=== PATIENT | female | born 1960 | race Two or more races ===

== ENCOUNTER → 2023-07-07 | Outpatient (CLI) | payer MEDICARE, OTHER | END | disposition home or self-care (01) | LOC: Rad HDHVI 09:22 | PROVIDERS: ATTEND Internal Medicine Cardiovascular Disease | DX: I10 Essential (primary) hypertension (principal) | CPT/HCPCS: 93306 ==

== ENCOUNTER → 2023-07-25 | Outpatient (CLI) | payer MEDICARE, OTHER ==
[~2023-07-25] VITALS: Ht 167.6 cm; Wt 112.0 kg
== END | disposition home or self-care (01) ==
LOC: Rad HDHVI 12:26
PROVIDERS: ATTEND Internal Medicine Cardiovascular Disease
DX: I10 Essential (primary) hypertension (principal); E78.5 Hyperlipidemia, unspecified; E78.00 Pure hypercholesterolemia, unspecified; Z82.49 Family history of ischemic heart disease and other diseases of the circulatory system
CPT/HCPCS: 78452; 93017; 96374; A9500

== ENCOUNTER → 2023-08-28 | Outpatient (CLI) | payer MEDICARE, OTHER ==
[~2023-08-28] MED LIST: CHOL50007 PO; GABA-1250 PO; HYDR25TA5 PO; LISI40TA16 PO; NALO4SPR2; OMEP20TA PO; OXYC30TA50 PO; POM; POM PO; SIMV20TA20 PO
[2023-08-28 10:09] VITALS: BP 139/64; PULSE 81; RESP 16; O2SAT 94
[2023-08-28 10:27] VITALS: BP 139/64; PULSE 81; RESP 16; O2SAT 94
== END | disposition home or self-care (01) ==
LOC: CHF HDHVI 09:59
PROVIDERS: ATTEND Internal Medicine Cardiovascular Disease
DX: Z01.818 Encounter for other preprocedural examination (principal); I10 Essential (primary) hypertension
CPT/HCPCS: 36415; 80048; 85025; 85610; 85730; 93005; G0463

== ENCOUNTER 2023-08-31 07:10 | Day surgery (SDC) | payer MEDICARE, OTHER ==
[2023-08-28 11:37] LABS: Basophils # (auto) 0.1 10 ^3/uL (0-0.2); Basophils % (auto) 0.9 % (0.0-2.0); Eosinophils # (auto) 0.1 10 ^3/uL (0-0.8); Eosinophils % (auto) 0.9 % (0.0-7.0); Hematocrit 41.2 % (36.0-46.0); Hemoglobin 13.5 g/dL (12.2-16.2); Lymphocytes # (auto) 2.8 10 ^3/uL (0.4-5.4); Lymphocytes % (auto) 23.3 % (10.0-50.0); Mean Corpuscular Hemoglobin 27.9 pg (28.0-32.0); Mean Corpuscular Hgb Conc. 32.8 g/dL (32.0-36.0); Mean Corpuscular Volume 85.1 fL (80.0-100.0); Monocytes # (auto) 0.5 10 ^3/uL (0-1.3); Monocytes % (auto) 4.1 % (0.0-12.0); Neutrophils # (auto) 8.6 10 ^3/uL (1.6-8.6); Neutrophils % (auto) 70.8 % (37.0-80.0); Nucleated Red Blood Cells % 0.1 %; Red Blood Cells 4.84 10^6/uL (4.0-5.20); Red Cell Distribution Width 15.5 % (11.8-14.3); White Blood Cell 12.2 10^3/uL (4.4-10.8)
[2023-08-28 11:52] LABS: INR 0.98 (0.9-1.15); Partial Thromboplastin Time 32.8 SEC (24.5-34.5); Prothrombin Time 10.3 sec (9.3-11.8)
[2023-08-28 12:04] LABS: Anion Gap 8 (5-15); Carbon Dioxide 30 mmol/L (20-30); Chloride 102 mmol/L (98-107); Potassium 4.1 mmol/L (3.5-5.1); Sodium 140 mmol/L (136-145)
[2023-08-28 12:06] LABS: Calcium 9.9 mg/dL (8.5-10.1)
[2023-08-28 12:10] LABS: BUN/Creatinine Ratio 9.3 (10.0-20.0); Blood Urea Nitrogen 8 mg/dL (9-23); Glucose 92 mg/dL (74-106)
[~2023-08-31] VITALS: Ht 167.6 cm; Wt 115.7 kg
[2023-08-31] MEDS ORDERED: ANGIOMAX 250 MG VIAL IV ONE (08:22)
[2023-08-31] MEDS ORDERED: MIDAZOLAM HCL 2MG/2ML 2ml VIAL (1mg/ml) ONE (08:23)
[2023-08-31] MEDS ORDERED: fentaNYL CITRATE 100 MCG/2 ML VL ONE (08:23)
[2023-08-31] MEDS ORDERED: SODIUM CHL 0.9% 0 ML ONE (08:23)
[2023-08-31] MEDS ORDERED: IOHEXOL 350 MG/ML 100ML IJ ONE (08:25)
[2023-08-31] MEDS ORDERED: LIDOCAINE 2%HCL (LOCAL ANESTH.) INJ 20ML MDV ONE (08:25)
[2023-08-31 09:06] VITALS: BP 101/67; PULSE 102; RESP 17; O2SAT 93
[2023-08-31 09:17] VITALS: BP 108/66; PULSE 100; RESP 22; O2SAT 96
[2023-08-31 09:32] VITALS: BP 94/58; PULSE 102; RESP 24; O2SAT 98
[2023-08-31 10:02] VITALS: BP 96/66; PULSE 116; RESP 20; O2SAT 98
[2023-08-31 10:17] VITALS: BP 107/67; PULSE 105; RESP 12; O2SAT 98
[2023-08-31 10:32] VITALS: BP 119/87; PULSE 100; RESP 20; O2SAT 93
== END 2023-08-31 11:06 | disposition home or self-care (01) ==
LOC: CATH 07:10
PROVIDERS: ATTEND Internal Medicine Cardiovascular Disease
DX: R07.89 Other chest pain (principal); I10 Essential (primary) hypertension; E78.5 Hyperlipidemia, unspecified; I48.20 Chronic atrial fibrillation, unspecified; Z79.01 Long term (current) use of anticoagulants; Z79.899 Other long term (current) drug therapy; Z98.890 Other specified postprocedural states
CPT/HCPCS: 36415; 80048; 85025; 85610; 85730; 93458; C1894; J1644; J2250; J3010; Q9967; 99152